=== PATIENT | male | born 1950 | race Caucasian/White ===

== ENCOUNTER → 2017-02-01 | Outpatient (CLI) | payer OTHER ==
--- NOTE | ~2017-02-01 | OR ---
PATIENT'S NAME: ARCHANA VIDALES [facility] AGE: 66 Y [address] ROOM: [place] [id number] LOCATION: GRAD ADMIT DATE: 02/01/2017 OR/Procedure Report DISCHARGE DATE: FAMILY PHYSICIAN: RAYSA MELENDEZ MD ATTENDING PHYSICIAN: ASHLEIGH JACOBS SURGEON: Galo Lynch MD BAKERY CLERK: DATE OF PROCEDURE: 02/01/2017 PROCEDURE: Cardiac MRI. INDICATION: History of myocardial infarction. DESCRIPTION OF PROCEDURE: Patient was prepared in the normal routine for cardiac MRI. The renal function was normal. He underwent MRI for morphology and function. 20 mL of ProHance contrast. Scanning was performed on Siemens Skyra 3 MRI system. FINDINGS: 1. The left ventricle is enlarged and dilated. Severe LV systolic dysfunction with anterior and anteroapical dyskinesis. LV end diastolic volume 216 mL. Index end diastolic volume 113 mL, end systolic volume 144 mL. Index end systolic volume 75 mL, stroke volume 70 mL, ejection fraction 33%. Right ventricle appears to be within normal limits with preserved function. No pericardial effusion. 2. Valvular morphology unremarkable. There is mild mitral and tricuspid regurgitation. 3. Late gadolinium enhancement shows moderate to large segment of scar involving the anteroapical segment, however, there appears to be viable myocardium at the apex which indicates partial viability. There is suggestion of a small thrombus anteroapical. 4. The thoracic aorta is of normal caliber without stenosis or aneurysm or dissection. Normal pulmonary vein anatomy. CONCLUSION: 1. Dilated left ventricle with LV systolic dysfunction, LVEF 33%. 2. Scar involving the anterior and anteroapical segment with partial viability in the apex with small LV thrombus. GALO LYNCH MD ON/ajf PATIENT'S NAME: ARCHANA VIDALES [facility] AGE: 66 Y [address] ROOM: [place] [address] LOCATION: GRAD ADMIT DATE: 02/01/2017 OR/Procedure Report DISCHARGE DATE: FAMILY PHYSICIAN: RAYSA MELENDEZ MD ATTENDING PHYSICIAN: ASHLEIGH JACOBS /[id number] d: 02/15/17 1721 t: 03/05/17 2253, OPERATIVE SUMMARY
== END | disposition disaster alternative care site (69) ==
LOC: GRAD 10:07
DX: I50.9 Heart failure, unspecified (principal)
CPT/HCPCS: A9576